=== PATIENT | male | born 1965 | race Caucasian/White ===

== ENCOUNTER 2016-05-27 14:22 | Emergency (ER) | payer BC ==
[~2016-05-27] VITALS: Ht 182.9 cm; Wt 83.9 kg
[2016-05-27] MEDS ORDERED: CYCLOBENZAPRINE 10 MG TABLET ONE (14:57)
[2016-05-27] MEDS ORDERED: CYCLOBENZAPRINE 10 MG TABLET PO ONE (15:00)
--- NOTE | 2016-05-27 15:06 | NUR ---
PT TAKEN TO XRAY VIA WHEELCHAIR Addendum: 05/27/16 at 1507 by CAROL TAKEN TO CT
[2016-05-27 16:23] VITALS: BP 133/74
== END 2016-05-27 16:25 | disposition home or self-care (01) ==
LOC: ER 14:24
DX: S09.90XA Unspecified injury of head, initial encounter (principal); S39.92XA Unspecified injury of lower back, initial encounter; V43.52XA Car driver injured in collision with other type car in traffic accident, initial encounter; Y93.89 Activity, other specified; Y92.413 State road as the place of occurrence of the external cause; Y99.9 Unspecified external cause status
CPT/HCPCS: 70450; 72125; 72131; 99284; A4606; Z7610